=== PATIENT | female | born 1995 | race Hispanic/Latino ===

== ENCOUNTER 2021-12-11 11:18 | Emergency (ER) | payer OTHER ==
[2021-12-11] MEDS ORDERED: Acetaminophen 500 MG TAB ONE (12:34)
[2021-12-11] MEDS ORDERED: Ondansetron ODT 4 MG TAB ONE (12:40)
== END 2021-12-11 14:05 | disposition home or self-care (01) ==
LOC: CSHERS 11:18
DX: J10.1 Influenza due to other identified influenza virus with other respiratory manifestations (principal); Z20.822 Contact with and (suspected) exposure to COVID-19
CPT/HCPCS: 87804; 99283; Q0162; U0003; U0005